=== PATIENT | female | born 1935 | race Caucasian/White ===

== ENCOUNTER → 2018-12-21 | Outpatient (CLI) | payer MEDICARE, OTHER ==
--- NOTE | 2018-12-21 19:50 | MR ---
EXAMINATION TYPE: MR shoulder LT wo con DATE OF EXAM: 12/21/2018 COMPARISON: None HISTORY: Rotator cuff tear TECHNIQUE: Multiplanar, multisequence imaging of the left shoulder is performed without contrast. FINDINGS: Rotator Cuff: There is some abnormal thickening, increased signal within the rotator cuff tendon sugg estive of tendinosis. Suspect a small posterior partial tear. Acromioclavicular Joint: Hypertrophic change at the acromioclavicular joint is noted. Glenohumeral Joint: There is hypertrophic change, remodeling of the humeral head, consistent with ost eoarthritic changes Labrum: The labrum appears grossly intact given limitation of non-arthrogram study. Biceps Tendon: The long head of biceps is in normal location within bicipital groove. Bone marrow signal: Small pseudocysts present in the humeral head. Other: Small acromial spur is present. Some minimal fluid in the subacromial subdeltoid bursa. IMPRESSION: There is tendinosis and likely a small partial tear of the rotator cuff, consider impingement. Some m ild osteoarthritic change is present.
== END ==
LOC: RADMRIMAIN 15:15
PROVIDERS: ATTEND Physical Medicine & Rehabilitation
DX: M19.012 Primary osteoarthritis, left shoulder (principal); M75.92 Shoulder lesion, unspecified, left shoulder